=== PATIENT | female | born 1985 | race African-American/Black ===

== ENCOUNTER 2020-08-28 00:59 | Emergency (ER) | payer OTHER ==
[~2020-08-28] VITALS: Ht 162.6 cm; Wt 86.2 kg
[2020-08-28] MEDS ORDERED: INTESTINEX680 M1 PO (03:36)
[2020-08-28] MEDS ORDERED: KETO10TA2 PO (03:36)
[2020-08-28] MEDS ORDERED: CLINDAMYCIN HC300 MG PO (03:36)
[2020-08-29] MEDS ORDERED: ACETAMINOPHEN325 M1 (19:55)
== END 2020-08-28 03:44 | disposition home or self-care (01) ==
LOC: ER 00:59
DX: K08.89 Other specified disorders of teeth and supporting structures (principal)